=== PATIENT | female | born 1940 | race Caucasian/White ===

== ENCOUNTER → 2016-12-17 | Outpatient (CLI) | payer MEDICARE, OTHER | LOC: MW.CHGS 08:00 | CPT/HCPCS: 99204 ==

== ENCOUNTER → 2017-01-13 | Outpatient (CLI) | payer MEDICARE, OTHER | LOC: MW.CHGS 14:08 | PROVIDERS: ATTEND Surgery | DX: Z00.00 Encounter for general adult medical examination without abnormal findings (principal); K43.2 Incisional hernia without obstruction or gangrene | CPT/HCPCS: 36415; 82565; 84520 ==

== ENCOUNTER → 2017-01-15 | Outpatient (CLI) | payer MEDICARE, OTHER ==
[2017-01-15] MEDS: Iopamidol 755 MG/ML 500 ML Multipack Bottle IVPUSH STA (12:51)
--- NOTE | 2017-01-15 14:59 | CT ---
CT of the abdomen and pelvis with and without contrast. HISTORY: Hernia TECHNIQUE: Axial CT images were obtained of the abdomen and pelvis before and following administrati on of 100 mL of Isovue-[id number] in left antecubital fossa without complication. Coronal and sagittal pablo nstructions obtained. Comparison: 08/23/2012. FINDINGS: The lung bases are clear, no pleural effusion. There is a 5 to 6 mm nodule within the left lung base . The liver, spleen, adrenal glands, and gallbladder appear normal. The pancreas is atrophic. No bulk y retroperitoneal lymphadenopathy or abdominal ascites. The kidneys enhance and function symmetrical ly without evidence of obstructive uropathy. There is a large ventral abdominal hernia containing small bowel and a portion of the appendix. Othe rwise the large and small bowel are normal in caliber without evidence of obstruction. Moderate sigm oid diverticulosis without evidence of diverticulitis. No pelvic lymphadenopathy or free pelvic flui d. The urinary bladder is mostly decompressed. Moderate degenerative changes noted within the lower lumbar spine. IMPRESSION: 1. Moderate to large ventral abdominal hernia containing small bowel and a portion of the appendix w ithout evidence of obstruction. 2. Diverticulosis without evidence of diverticulitis. 3. Grossly stable pulmonary nodule within the left lung base, technically benign.
== END ==
LOC: MW.DI 11:27
PROVIDERS: ATTEND Surgery
DX: K43.2 Incisional hernia without obstruction or gangrene (principal); K57.90 Diverticulosis of intestine, part unspecified, without perforation or abscess without bleeding; R91.1 Solitary pulmonary nodule
CPT/HCPCS: 74178; Q9967

== ENCOUNTER → 2017-01-19 | Outpatient (CLI) | payer MEDICARE, OTHER | LOC: MW.CHGS 08:00 | PROVIDERS: ATTEND Surgery | DX: K43.2 Incisional hernia without obstruction or gangrene (principal) | CPT/HCPCS: G0463 ==

== ENCOUNTER 2023-08-19 21:48 | Emergency (ER) | payer MEDICARE, OTHER ==
[2023-08-19 22:23] LABS: BASOPHILS ABSOLUTE AUTO 0.04 K/uL (0.00-0.20); BASOPHILS PERCENT AUTO 0.6 % (0.0-1.0); EOSINOPHILS ABSOLUTE AUTO 0.01 K/uL (0.00-0.45); EOSINOPHILS PERCENT AUTO 0.2 % (0.0-6.0); HEMATOCRIT 44.9 % (37.0-47.0); HEMOGLOBIN 15.2 g/dL (12.0-16.0); IMMATURE GRAN ABSOLUTE AUTO 0.01 K/uL (0.00-0.05); IMMATURE GRAN PERCENT AUTO 0.2 % (0.0-0.4); LYMPHOCYTES ABSOLUTE AUTO 0.34 K/uL (1.00-4.80); LYMPHOCYTES PERCENT AUTO 5.5 % (24.0-44.0); MEAN CORPUSCULAR HEMOGLOBIN 29.3 pg (28.0-32.0); MEAN CORPUSCULAR HGB CONC 33.9 g/dL (32.0-36.0); MEAN CORPUSCULAR VOLUME 86.7 fL (83.0-99.0); MEAN PLATELET VOLUME 9.8 fL (9.4-12.3); MONOCYTES ABSOLUTE AUTO 0.56 K/uL (0.00-0.80); NEUTROPHILS ABSOLUTE AUTO 5.25 K/uL (1.80-7.70); NEUTROPHILS PERCENT AUTO 84.5 % (41.0-71.0); PLATELET COUNT,PLT 159 K/uL (150-400); RED BLOOD CELL COUNT 5.18 M/uL (4.10-5.30); WHITE BLOOD CELL COUNT,WBC 6.21 K/uL (3.9-11.3)
[2023-08-19 22:28] LABS: CALCIUM 8.9 mg/dL (8.5-10.1); CARBON DIOXIDE,CO2 26.7 mmol/L (21.0-32.0); CREATININE 0.8 mg/dL (0.6-1.0); EST CRCL DRUG DOSING (CG) 39.61 mL/min; POTASSIUM,K 3.7 mmol/L (3.5-5.1)
[2023-08-19] MEDS ORDERED: Acetaminophen 500 MG Tab PO ONE (23:36)
== END 2023-08-20 00:28 | disposition home or self-care (01) ==
LOC: MW.ED 21:48
DX: U07.1 COVID-19 (principal)
CPT/HCPCS: 36415; 71045; 80048; 85025; 99285; A9270; U0002; 99283